=== PATIENT | female | born 1950 | race Caucasian/White ===

== ENCOUNTER → 2023-07-29 14:24 | Outpatient (REF) | payer MEDICARE, OTHER, SELFPAY | LOC: HWRAD 14:24 | PROVIDERS: ATTENDING PHYSICIAN Internal Medicine | DX: R74.01 Elevation of levels of liver transaminase levels (principal) | CPT/HCPCS: 76700 ==

== ENCOUNTER → 2023-10-12 08:19 | Outpatient (REF) | payer MEDICARE, OTHER, SELFPAY ==
[2023-10-12 10:10] LABS: ALT (SGPT) 41 U/L (0-35); AST (SGOT) 38 U/L (14-36); Albumin 4.8 g/dl (3.5-5.0); Alkaline Phosphatase 50 U/L (38-126); Blood Urea Nitrogen 22 mg/dl (7-17); Calcium 10.5 mg/dl (8.4-10.2); Carbon Dioxide 26 mmol/L (22-30); Chloride 104 mmol/L (98-107); Glucose 101 mg/dl (70-99); Potassium 4.6 mmol/L (3.5-5.1); Sodium 136 mmol/L (135-145); Total Bilirubin 0.7 mg/dl (0.2-1.3); Total Protein 7.5 g/dl (6.3-8.2); eGFR > 60.00
== END ==
LOC: HWLAB 08:19
PROVIDERS: ATTENDING PHYSICIAN Internal Medicine
DX: R74.8 Abnormal levels of other serum enzymes (principal)
CPT/HCPCS: 36415; 80053

== ENCOUNTER → 2024-01-08 15:34 | Outpatient (REF) | payer MEDICARE, OTHER, SELFPAY | LOC: HWRCS 15:34 | PROVIDERS: ATTENDING PHYSICIAN Internal Medicine Cardiovascular Disease | DX: I35.1 Nonrheumatic aortic (valve) insufficiency (principal) | CPT/HCPCS: 93306 ==

== ENCOUNTER → 2024-01-28 14:01 | Outpatient (REF) | payer MEDICARE, OTHER, SELFPAY | LOC: HWRAD 14:01 | PROVIDERS: ATTENDING PHYSICIAN Otolaryngology; FAMILY PHYSICIAN Internal Medicine; REFERRING PHYSICIAN Ophthalmology | DX: J32.8 Other chronic sinusitis (principal) | CPT/HCPCS: 70486 ==

== ENCOUNTER → 2024-02-03 15:30 | Outpatient (REF) | payer MEDICARE, OTHER, SELFPAY | LOC: MRI 3T 15:30 | PROVIDERS: ATTENDING PHYSICIAN Internal Medicine | DX: H57.12 Ocular pain, left eye (principal); R51.9 Headache, unspecified; R42 Dizziness and giddiness | CPT/HCPCS: 70553; A9575 ==

== ENCOUNTER → 2024-02-17 10:25 | Outpatient (REF) | payer MEDICARE, OTHER, SELFPAY | LOC: RAD 10:25 | PROVIDERS: ATTENDING PHYSICIAN Internal Medicine; REFERRING PHYSICIAN Ophthalmology | DX: R51.9 Headache, unspecified (principal); R42 Dizziness and giddiness; H57.10 Ocular pain, unspecified eye | CPT/HCPCS: 70496; Q9967 ==

== ENCOUNTER → 2024-06-08 12:27 | Outpatient (REF) | payer MEDICARE, OTHER, SELFPAY ==
[2024-06-08 16:03] LABS: ALT (SGPT) 27 U/L (0-35); AST (SGOT) 34 U/L (14-36); Albumin 4.6 g/dl (3.5-5.0); Alkaline Phosphatase 46 U/L (38-126); Blood Urea Nitrogen 23 mg/dl (7-17); Calcium 10.3 mg/dl (8.4-10.2); Carbon Dioxide 27 mmol/L (22-30); Chloride 103 mmol/L (98-107); Glucose 113 mg/dl (70-99); Potassium 4.6 mmol/L (3.5-5.1); Sodium 139 mmol/L (135-145); Total Bilirubin 0.6 mg/dl (0.2-1.3); Total Protein 7.3 g/dl (6.3-8.2); eGFR > 60.00
[2024-06-08 16:33] LABS: TSH 2.87 uIU/ml (0.47-4.68)
[2024-06-11 09:03] LABS: Intact PTH 60.2 pg/ml (13.6-85.8)
== END ==
LOC: HWLAB 12:27
PROVIDERS: ATTENDING PHYSICIAN Internal Medicine Endocrinology, Diabetes & Metabolism; FAMILY PHYSICIAN Internal Medicine
DX: E21.0 Primary hyperparathyroidism (principal); E04.2 Nontoxic multinodular goiter
CPT/HCPCS: 36415; 80053; 83970; 84443

== ENCOUNTER → 2024-09-02 07:05 | Outpatient (REF) | payer MEDICARE, OTHER, SELFPAY | LOC: WDC 07:05 | PROVIDERS: ATTENDING PHYSICIAN Physician Assistant; FAMILY PHYSICIAN Internal Medicine | DX: Z12.31 Encounter for screening mammogram for malignant neoplasm of breast (principal) | CPT/HCPCS: 77063; 77067 ==

== ENCOUNTER → 2025-01-25 08:18 | Outpatient (REF) | payer MEDICARE, OTHER, SELFPAY ==
[2025-01-25 10:21] LABS: ALT (SGPT) 33 U/L (0-35); AST (SGOT) 37 U/L (14-36); Albumin 4.8 g/dl (3.5-5.0); Alkaline Phosphatase 70 U/L (38-126); HDL Cholesterol 64 mg/dl; LDL Cholesterol, Calculated 72 mg/dl; Total Protein 7.2 g/dl (6.3-8.2); Very Low Density Lipoprotein 10 mg/dl (0-30)
== END ==
LOC: HWLAB 08:18
PROVIDERS: ATTENDING PHYSICIAN Internal Medicine Cardiovascular Disease; FAMILY PHYSICIAN Internal Medicine
DX: E78.5 Hyperlipidemia, unspecified (principal)
CPT/HCPCS: 36415; 80061; 80076

== ENCOUNTER → 2025-03-20 11:55 | Outpatient (REF) | payer MEDICARE, OTHER, SELFPAY | LOC: MRI 3T 11:55 | PROVIDERS: ATTENDING PHYSICIAN Internal Medicine; FAMILY PHYSICIAN Obstetrics & Gynecology | DX: R92.8 Other abnormal and inconclusive findings on diagnostic imaging of breast (principal); R92.30 Dense breasts, unspecified | CPT/HCPCS: 77049; A9585 ==

== ENCOUNTER → 2025-05-15 12:06 | Outpatient (REF) | payer MEDICARE, OTHER, SELFPAY | LOC: HWRAD 12:06 | PROVIDERS: ATTENDING PHYSICIAN Internal Medicine Endocrinology, Diabetes & Metabolism; FAMILY PHYSICIAN Internal Medicine | DX: M81.0 Age-related osteoporosis without current pathological fracture (principal) | CPT/HCPCS: 77080 ==

== ENCOUNTER → 2025-06-05 13:23 | Outpatient (REF) | payer MEDICARE, OTHER, SELFPAY ==
[2025-06-05 14:21] LABS: ALT (SGPT) 30 U/L (0-35); AST (SGOT) 34 U/L (14-36); Albumin 4.9 g/dl (3.5-5.0); Alkaline Phosphatase 72 U/L (38-126); Blood Urea Nitrogen 20 mg/dl (7-17); Calcium 10.2 mg/dl (8.4-10.2); Carbon Dioxide 27 mmol/L (22-30); Chloride 102 mmol/L (98-107); Glucose 101 mg/dl (70-99); Potassium 4.3 mmol/L (3.5-5.1); Sodium 136 mmol/L (135-145); Total Protein 7.7 g/dl (6.3-8.2); eGFR > 60.00
[2025-06-05 14:52] LABS: TSH 3.31 uIU/ml (0.47-4.68)
== END ==
LOC: REG 13:23
PROVIDERS: ATTENDING PHYSICIAN Internal Medicine Endocrinology, Diabetes & Metabolism; FAMILY PHYSICIAN Internal Medicine
DX: E21.0 Primary hyperparathyroidism (principal); E04.2 Nontoxic multinodular goiter
CPT/HCPCS: 36415; 80053; 83970; 84443